=== PATIENT | female | born 1940 | race Caucasian/White ===

== ENCOUNTER 2019-02-01 17:27 | Emergency (ER) | payer MEDICARE, OTHER, BC ==
[2019-02-01] MEDS ORDERED: Ondansetron PF 4 MG/2 ML Vial ONE (18:28)
[2019-02-01 18:31] LABS: #Eosinphils 0.2 thou/uL (0.0-0.7); #Lymphocytes 1.1 thou/uL (1.20-3.40); #Monocytes 0.9 thou/uL (0.11-0.59); %Basophils 0.3 % (0.0-1.0); %Eosinophils 1.8 % (0.0-10.0); %Lymphocytes 10.1 % (21.0-51.0); %Neutrophils 79.8 % (42.0-75.0); Hemoglobin 14.2 g/dL (12.0-16.0); Mean Corpuscular HGB CONC 33.6 g/dL (32.0-36.0); Mean Corpuscular Hemoglobin 30.7 pg (27.0-31.0); Mean Corpuscular Volume 91.3 fL (78.0-98.0); Mean Platelet Volume 6.1 fL (7.4-10.4); Platelet Count 299 thou/uL (130-400); RBC Distribution Width 12.1 % (11.5-14.5); Red Blood Cell (RBC) Count 4.63 mill/uL (4.20-5.40); White Blood Cell (WBC) Count 11.3 thou/uL (4.8-10.8)
[2019-02-01 18:41] LABS: ALT (SGPT) 22 U/L (8-55); AST (SGOT) 29 U/L (5-34); Alkaline Phosphatase 82 U/L (40-110); Anion Gap 15 mmol/L (10-20); BUN (Urea Nitrogen) 19 mg/dL (9.8-20.1); Bilirubin, Total 0.5 mg/dL (0.2-1.2); Calc. Creatinine Clearance 0 mL/min (70-130); Calcium 9.1 mg/dL (7.8-10.44); Carbon Dioxide 20 mmol/L (23-31); Chloride 107 mmol/L (98-107); Estimated GFR-MDRD 49; Glucose 96 mg/dL (83-110); Lipase 30 U/L (8-78); Sodium 138 mmol/L (136-145)
== END 2019-02-01 20:44 | disposition home or self-care (01) ==
LOC: ERS 17:27
DX: R19.7 Diarrhea, unspecified (principal); R11.2 Nausea with vomiting, unspecified; E27.40 Unspecified adrenocortical insufficiency; Z79.899 Other long term (current) drug therapy; Z79.52 Long term (current) use of systemic steroids
CPT/HCPCS: 80053; 83690; 85025; 96361; 96374; J2405

== ENCOUNTER 2020-11-25 12:44 | Outpatient (CLI) | payer MEDICARE, OTHER | END 2020-11-25 12:45 | disposition home or self-care (01) | LOC: BICCT 12:44 | PROVIDERS: ATTEND Otolaryngology Plastic Surgery within the Head & Neck | DX: H90.3 Sensorineural hearing loss, bilateral (principal) | CPT/HCPCS: 70480 ==